=== PATIENT | male | born 2000 | race Two or more races ===

== ENCOUNTER 2025-05-30 03:55 | Emergency (ER) | payer OTHER ==
[~2025-05-30] VITALS: Ht 180.3 cm; Wt 72.6 kg
[2025-05-30] MEDS ORDERED: DICLOFENAC SODI75 MG PO (05:40)
[2025-05-30] MEDS ORDERED: NORFLEX100MG PO (05:40)
[2025-05-30] MEDS ORDERED: DEXAMETHASONE SODIUM PHOSPHATE 4 MG/ML VIAL IM ONE (05:45)
[2025-05-30] MEDS ORDERED: ORPHENADRINE CITRATE 30 MG/ML AMPUL IM ONE (05:45)
[2025-05-30] MEDS ORDERED: KETOROLAC TROMETHAMINE 60 MG VIAL IM ONE ×2 (05:45→06:02)
[2025-05-30] MEDS ORDERED: DEXAMETHASONE SODIUM PHOSPHATE 4 MG/ML VIAL ONE (06:02)
[2025-05-30] MEDS ORDERED: ORPHENADRINE CITRATE 30 MG/ML AMPUL ONE (06:02)
== END 2025-05-30 06:40 | disposition home or self-care (01) ==
LOC: ER 03:55
DX: M54.50 Low back pain, unspecified (principal)